=== PATIENT | male | born 1965 | race Caucasian/White ===

== ENCOUNTER 2017-09-05 12:57 | Emergency (ER) | payer OTHER ==
--- NOTE | 2017-09-05 13:41 | Emergency Department Record ---
History of Present Illness - General Stated Complaint: CARDIAC ARREST Time Seen by Provider: 09/05/17 13:36 Source: EMS Mode of Arrival: Stretcher Limitations: Physical limitation - History of Present Illness Initial Comments: The patient was brought her by EMS after collapsing at home. He had a short down time per EMS and was found by first responders in [facility]. He was shocked and did have a brief ROSC. EMS then did intubate the patient with a GAUTAM tube and began CPR. Prior to presenting here he now had been pulseless for > 30 minutes. He has received 6 Epi's and has had a thumper performing CPR throughout. The patient did have a well placed IO in the L tibia. Complaint: Collapsed during rest - Related Data Allergies Allergy/AdvReac Type Severity Reaction Status Date / Time No Known Drug Allergies Allergy Unknown Unverified 06/26/15 15:45 [NO KNOWN DRUG ALLERGIES] Physical Exam - Head Head exam: Atraumatic, Normocephalic - Eye Eye exam: Other (pupils are fixed and dilated.) - Neck Neck exam: Normal inspection - Respiratory Respiratory exam: Decreased breath sounds - Cardiovascular Cardiovascular Exam: Other (There is no heart rhythm.) - GI/Abdominal GI/Abdominal exam: Distended - Extremities Extremities exam: Normal inspection, Full ROM, Normal capillary refill. negative: Tenderness Course - Reevaluation(s) Reevaluation #1: The patient had CPR performed here and 2 EPI's in the ED. We did run his code for 15 minutes but since we had no ROSC we did call the code at 13:12. At that time the patient was pulseless, flatline on the monitor and had no heart beat on the US machine. He had been without a pulse for at leat 45 minutes. 09/05/17 13:39 Reevaluation #2: The ME did come to the ER and release the body. 09/05/17 14:40 Quality - Quality Measures Quality Measures: N/A - Blood Pressure Screening View Details: Yes Does Patient Have Any of the Following: Active Dx of HTN Systolic Measurement: ~ Screening for High Blood Pressure: Patient Exclusion, Hx of HTN [G9744]
--- NOTE | 2017-09-08 07:38 | Emergency Department Record ---
History of Present Illness - General Chief Complaint: Code Adult Stated Complaint: CARDIAC ARREST Time Seen by Provider: 09/05/17 13:36 Source: EMS Mode of Arrival: Stretcher Limitations: Physical limitation - History of Present Illness MD Complaint: Collapsed during rest -: Unknown Place: Home Bystander CPR Performed: Yes AED Applied by Bystander/Window Glass Cutter Off: Yes Initial Findings in the Field: No respirations, Unresponsive Treatments Prior to Arrival: Chest compressions, Other airway device, Epinephrine mgs # - Related Data Allergies Allergy/AdvReac Type Severity Reaction Status Date / Time No Known Drug Allergies Allergy Unknown Unverified 06/26/15 15:45 [NO KNOWN DRUG ALLERGIES] Travel Screening - Travel/Exposure Within Last 30 Days Have you traveled within the last 30 days?: No Past Medical History - SOCIAL HISTORY Smoking Status: Unknown if ever smoked Family Medical History Any Significant Family History?: No Physical Exam - General Limitations: Physical limitation Disposition Clinical Impression: Cardiac arrest Disposition: / Condition: (5) Critical Forms: Patient Portal Access Quality - Quality Measures Quality Measures: N/A - Blood Pressure Screening View Details: Yes Does Patient Have Any of the Following: Active Dx of HTN Systolic Measurement: ~ Screening for High Blood Pressure: Patient Exclusion, Hx of HTN [G9744]
== END 2017-09-05 17:10 | disposition expired ==
LOC: ER 12:57
DX: I46.9 Cardiac arrest, cause unspecified (principal); I10 Essential (primary) hypertension
CPT/HCPCS: 92950; 96374; 99285